=== PATIENT | male | born 2000 | race Caucasian/White ===

== ENCOUNTER 2022-12-18 18:32 | Emergency (ER) | payer OTHER, SELFPAY ==
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
[2022-12-18 18:45] VITALS: BP 148/78; PULSE 73; RESP 20; TEMP 37; O2SAT 99
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
== END 2022-12-18 19:32 | disposition home or self-care (01) ==
PROVIDERS: Emergency Provider Nurse Practitioner Family
DX: S39.012A Strain of muscle, fascia and tendon of lower back, initial encounter (principal); R07.81 Pleurodynia; V43.62XA Car passenger injured in collision with other type car in traffic accident, initial encounter
CPT/HCPCS: 71046; 71100; 99203; G0463